=== PATIENT | female | born 1995 | race Caucasian/White ===

== ENCOUNTER 2018-09-21 22:29 | Emergency (ER) | payer SELFPAY ==
[~2018-09-21] VITALS: Ht 162.6 cm; Wt 61.2 kg
--- NOTE | 2018-09-21 22:30 | NUR ---
UPON PT ARRIVAL TO ED DR BENÍTEZ PLACES PT IN C-COLLAR.
[2018-09-21] MEDS ORDERED: ONDANSETRON 4 MG/2 ML (SDV) Z0FRAN IV ONE (22:45)
[2018-09-21 22:52] LABS: BASOPHILS % (AUTO) 0 % (0-10); EOSINOPHILS # (AUTO) 0.1 10^3/uL (0.0-0.3); EOSINOPHILS % (AUTO) 1 % (0-10); HEMATOCRIT 36 % (35-52); HEMOGLOBIN 12.6 G/DL (11.5-16.0); LYMPHOCYTES # (AUTO) 2.2 X 10^3 (1.0-4.0); LYMPHOCYTES % (AUTO) 21 % (12-44); MEAN CORPUSCULAR HEMOGLOBIN 30 PG (25-34); MEAN CORPUSCULAR HGB CONC 35 G/DL (32-36); MEAN CORPUSCULAR VOLUME 86 FL (80-99); MONOCYTES # (AUTO) 1.3 X 10^3 (0.0-1.0); MONOCYTES % (AUTO) 12 % (0-12); NEUTROPHILS # (AUTO) 7.2 X 10^3 (1.8-7.8); NEUTROPHILS % (AUTO) 66 % (42-75); PLATELET COUNT 283 10^3/uL (130-400); RED CELL DISTRIBUTION WIDTH 13.2 % (10.0-14.5); WHITE BLOOD COUNT 10.9 10^3/uL (4.3-11.0)
[2018-09-21 23:00] LABS: BILIRUBIN,URINE NEGATIVE (NEGATIVE); CLARITY,URINE CLEAR; COLOR,URINE YELLOW; GLUCOSE, URINE (UA) NEGATIVE (NEGATIVE); KETONES,URINE NEGATIVE (NEGATIVE); LEUKOCYTE ESTERASE ,URINE 1+ (NEGATIVE); NITRITE,URINE NEGATIVE (NEGATIVE); PH,URINE 5 (5-9); PROTEIN,URINE NEGATIVE (NEGATIVE); UROBILINOGEN,URINE NORMAL (NORMAL)
[2018-09-21 23:09] LABS: AMPHETAMINE SCREEN, URINE NEGATIVE (NEGATIVE); BARBITURATE SCREEN URINE NEGATIVE (NEGATIVE); BENZODIAZEPINES SCREEN URINE NEGATIVE (NEGATIVE); CANNABINOID SCREEN, URINE NEGATIVE (NEGATIVE); COCAINE SCREEN URINE NEGATIVE (NEGATIVE); METHADONE STAT NEGATIVE (NEGATIVE); METHAMPHETAMINE SCREEN URINE S NEGATIVE (NEGATIVE); OPIATE SCREEN URINE NEGATIVE (NEGATIVE); OXYCODONE STAT NEGATIVE (NEGATIVE); PROPOXYPHENE STAT NEGATIVE (NEGATIVE); TRICYCLIC ANTIDEPRESSANTS SCRE NEGATIVE (NEGATIVE)
[2018-09-21 23:12] LABS: BACTERIA,URINE TRACE /HPF; RBC,URINE 0-2 /HPF
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
--- NOTE | 2018-09-21 23:28 | NUR ---
PT TO CT ACCOMPANIED BY FERNANDA TRACY, HERNANDEZ BROWN.
[2018-09-21 23:30] LABS: ALANINE AMINOTRANSFERASE 11 U/L (0-55); ALKALINE PHOSPHATASE 26 U/L (40-136); BILIRUBIN,TOTAL 0.2 MG/DL (0.1-1.0); BUN/CREATININE RATIO 11; CALCIUM 8.6 MG/DL (8.5-10.1); CARBON DIOXIDE 15 MMOL/L (21-32); CHLORIDE 107 MMOL/L (98-107); CREATININE SERUM 0.75 MG/DL (0.60-1.30); GFR ESTIMATED > 60; GLUCOSE 70 MG/DL (70-105); POTASSIUM 3.2 MMOL/L (3.6-5.0); SODIUM 136 MMOL/L (135-145); TOTAL PROTEIN 6.8 GM/DL (6.4-8.2)
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
--- NOTE | 2018-09-22 | NUR ---
pt back from ct at this time
--- NOTE | 2018-09-22 01:00 | NUR ---
C-COLLAR REMOVED FROM PT AT THIS TIME PER DR. GONZALEZ.
--- NOTE | 2018-09-22 01:20 | NUR ---
PT SLEEPING ON HER SIDE AT THIS TIME. PT VS ARE STABLE AND IV FLUIDS ARE FLOWING. IV SITE CHECKED AND APPEARS PATENT. BOTH SIDE RALES REMAIN UP. PT FRIEND AT BEDSIDE.
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
[2018-09-22] MEDS ORDERED: KCL 10 MEQ TAB (MICRO K) PO ONE (02:30)
--- NOTE | 2018-09-22 02:30 | NUR ---
PT UP TO BEDSIDE COMMODE AT THIS TIME.
--- NOTE | 2018-09-22 02:34 | NUR ---
PT TAKES POTASSIUM PILLS WITHOUT DIFFIUCLTY AT THIS TIME. PT APPEARS MORE AWAKE/ALERT AND TRANSFERS SELF FROM COMMODE TO BED WITHOUT DIFFICUTLY. PT FRIEND REMAINS AT BEDSIDE.
[2018-09-22 02:54] VITALS: BP 101/66
--- NOTE | 2018-09-22 02:56 | NUR ---
PT WHEELED TO DISCHARGE AT THIS TIME. PT FRIEND BOBBY TO DRIVE AND TAKE PT HOME WITH HER FOR THE NIGHT/MORNING.
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
== END 2018-09-22 02:54 | disposition home or self-care (01) ==
LOC: ER 22:30
DX: S60.419A Abrasion of unspecified finger, initial encounter (principal); F10.129 Alcohol abuse with intoxication, unspecified; E87.6 Hypokalemia; W17.89XA Other fall from one level to another, initial encounter; Y92.481 Parking lot as the place of occurrence of the external cause
CPT/HCPCS: 36415; 70450; 71045; 72125; 72170; 80053; 80306; 80320; 81000; 84703; 85025